=== PATIENT | female | born 1995 | race Caucasian/White ===

== ENCOUNTER 2017-06-05 17:21 | Emergency (ER) | payer MEDICAID, OTHER ==
[2017-06-05] MEDS ORDERED: Albuterol-Ipratrop 3 mg / 0.5 (3 ml) UD IH STA (18:12)
[2017-06-05 18:15] VITALS: TEMP 99; O2SAT 100
--- NOTE | 2017-06-05 18:19 | ED PDOC ---
Arrival/HPI - General Historian: Patient - History of Present Illness Time/Duration: Other (2 days) Context: Home - General Time Seen by Provider: 06/05/17 17:45 - History of Present Illness Narrative History of Present Illness (Text): 06/05/17 18:13 This 21 yo male presents to this ED c/o cough, and upper back pain x 2 days. Patient denies fever, cp, sob, recent travel, leg edema, calf pain, blood disorder, rash, palpitation, sick contact, hemoptysis, or abnormal gait. PERC negative for PE (Mancsuo,Nahim P) Past Medical History - Provider Review Nursing Documentation Reviewed: Yes - Psychiatric Hx Substance Use: No - Anesthesia Hx Anesthesia: No Family/Social History - Physician Review Nursing Documentation Reviewed: Yes Family/Social History: No Known Family HX Smoking Status: Never Smoked Hx Alcohol Use: No Hx Substance Use: No Allergies/Home Meds Allergies/Adverse Reactions: Allergies No Known Allergies Allergy (Verified 12/21/15 14:20) Review of Systems - Review of Systems Constitutional: Normal. absent: Fatigue, Weight Change, Fevers Eyes: Normal ENT: Normal Respiratory: Cough, Sputum. absent: Wheezing Cardiovascular: Normal. absent: Palpitations, Edema Gastrointestinal: Normal. absent: Abdominal Pain, Vomiting Genitourinary Female: Normal. absent: Dysuria, Frequency, Hematuria, Urine Output Changes, Vaginal Bleeding, Vaginal Discharge Musculoskeletal: Other ((+) upper back pain) Skin: Normal Neurological: Normal Endocrine: Normal Hemo/Lymphatic: Normal Psychiatric: Normal Physical Exam Temperature: Afebrile Blood Pressure: Normal Pulse: Regular Respiratory Rate: Normal Appearance: Positive for: Well-Appearing, Non-Toxic, Comfortable Pain Distress: None Mental Status: Positive for: Alert and Oriented X 3 - Systems Exam Head: Present: Atraumatic, Normocephalic Pupils: Present: PERRL Extroacular Muscles: Present: EOMI Conjunctiva: Present: Normal Mouth: Present: Moist Mucous Membranes Neck: Present: Normal Range of Motion Respiratory/Chest: Present: Clear to Auscultation, Good Air Exchange. No: Respiratory Distress, Accessory Muscle Use Cardiovascular: Present: Regular Rate and Rhythm, Normal S1, S2. No: Murmurs Abdomen: Present: Normal Bowel Sounds. No: Tenderness, Distention, Peritoneal Signs, Guarding Back: Present: Normal Inspection. No: CVA Tenderness Upper Extremity: Present: Normal Inspection, Normal ROM, NORMAL PULSES, Neurovascularly Intact, Capillary Refill < 2s. No: Cyanosis, Edema Lower Extremity: Present: Normal Inspection, NORMAL PULSES, Normal ROM, Neurovascularly Intact, Capillary Refill < 2 s. No: Edema Neurological: Present: GCS=15, CN II-XII Intact, Speech Normal, Motor Func Grossly Intact, Normal Sensory Function, Normal Cerebellar Funct, Gait Normal, Memory Normal Skin: Present: Warm, Dry, Normal Color. No: Rashes Psychiatric: Present: Alert, Oriented x 3, Normal Insight, Normal Concentration Medical Decision Making Re-evaluation Time: 18:49 Reassessment Condition: Re-examined, Improved ED Course and Treatment: 06/05/17 18:48 Re-evaluation. Patient feels better. Discussed results and plan with patient who expresses understanding. Counseling was provided regarding the diagnosis and prognosis. All questions answered and there is agreement with the plan to discharge home with instructions. Patient stable for discharge. Return if symptoms persist or worsen. Chest x-rays was unremarkable. Patient felt better after Duoneb, and Prednisone. Urine preg was negative. Patient was recommended to f/u PMD in 1-2 days, and to return to emergency if symptoms worsen. (Nazia Mancuso) 06/05/17 18:59 I was available for consultation during PA evaluation. The chart was reviewed by me, and I agree with disposition. The documented history was done by the physician business records manager. The documented physical exam was done by the physician business records manager. The documented procedures were done by the physician business records manager. (Alfredo Jennings) - RAD Interpretation Narrative RAD Interpretations (Text): 06/05/17 18:50 Chest x-rays: NAD (Nazia Mancuso) Radiology Orders: 06/05/17 18:11 CHEST TWO VIEWS (PA/LAT) [RAD] Stat - Medication Orders Current Medication Orders: Discontinued Medications Albuterol/Ipratropium (Duoneb 3 Mg/0.5 Mg (3 Ml) Ud) 3 ml IH STAT STA Stop: 06/05/17 18:13 Prednisone (Prednisone Tab) 60 mg PO STAT ONE Stop: 06/05/17 18:44 Disposition/Present on Arrival - Present on Arrival Any Indicators Present on Arrival: No History of DVT/PE: No History of Uncontrolled Diabetes: No Urinary Catheter: No History of Decub. Ulcer: No - Disposition Have Diagnosis and Disposition been Completed?: Yes Disposition Time: 18:50 Patient Plan: Discharge - Disposition Diagnosis: Upper respiratory infection, Upper back pain, Cough Disposition: HOME/ ROUTINE Patient Problems: Current Active Problems Problem Status Onset Upper respiratory infection Acute Upper back pain Acute Cough Acute Discharge Instructions (ExitCare): Upper Respiratory Infection (ED) Additional Instructions: Call private doctor for follow up visit in 1-2 days. Take medication as instructed. Return to emergency if symptoms worsen. Prescriptions: Acetaminophen with Codeine [Tylenol with Codeine #3 Tablet] 1 each PO Q6H PRN # 12 tablet PRN Reason: Pain, Severe (8-10) Prednisone [Deltasone] 40 mg PO DAILY #8 tablet Promethazine [Promethazine HCl] 5 ml PO Q4H PRN #180 ml PRN Reason: Cough Referrals: PCP,NO [Primary Care Provider] - Follow up with primary [facility] [Outside] - Follow up with primary [facility] [Outside] - Follow up with primary Forms: WORK NOTE
[2017-06-05 19:26] VITALS: BP 113/48; PULSE 82; RESP 16
--- NOTE | 2017-06-06 10:17 | RAD ---
HISTORY: COUGH COMPARISON: No prior. TECHNIQUE: Chest PA and lateral FINDINGS: LUNGS: No active pulmonary disease. PLEURA: No significant pleural effusion identified. No pneumothorax apparent. CARDIOVASCULAR: Normal. OSSEOUS STRUCTURES: No significant abnormalities. VISUALIZED UPPER ABDOMEN: Normal. OTHER FINDINGS: None. IMPRESSION: No active disease.
== END 2017-06-05 19:12 | disposition home or self-care (01) ==
LOC: EDBD → ED 17:21
DX: J06.9 Acute upper respiratory infection, unspecified (principal); M54.6 Pain in thoracic spine; R05 Cough

== ENCOUNTER 2018-03-30 18:03 | Emergency (ER) | payer MEDICAID, OTHER ==
[2018-03-30] MEDS ORDERED: Sodium Chloride 0.9% 1,000 ML IV STA (18:33)
--- NOTE | 2018-03-30 18:36 | ED PDOC ---
Arrival/HPI - General Chief Complaint: GI Problem Time Seen by Provider: 03/30/18 18:17 Historian: Patient - History of Present Illness Narrative History of Present Illness (Text): 03/30/18 18:33 22yr old female presents today with a 2 day history of worsening rectal pain. pt states symptoms started 2 days ago after bowel movement. pt states she strained slightly and then noticed a small amount of bleeding when she wiped. pt states since that time the pain has worsened. pt states the pain is constant. pt states she tried oTc preparation H and has been taking motrin for pain without improvement. pt states the pain is severe 7/10 and localized to the rectum.pt denies fever/chills. no abdominal pain. no dizziness or weakness. no trauma or injury. pt states she has been trying suppositories without improvement. no other complaints. Time/Duration: Other (2-3 days) Past Medical History - Provider Review Nursing Documentation Reviewed: Yes - Travel History Have you recently traveled outside [place] w/in the past 3 mons?: No - Infectious Disease Hx of Infectious Diseases: None - Psychiatric Hx Psychophysiologic Disorder: No Hx Substance Use: No - Anesthesia Hx Anesthesia: No - Suicidal Assessment Feels Threatened In Home Enviroment: No Family/Social History - Physician Review Nursing Documentation Reviewed: Yes Family/Social History: Unknown Family HX Smoking Status: Never Smoked Hx Alcohol Use: No Hx Substance Use: No Allergies/Home Meds Allergies/Adverse Reactions: Allergies No Known Allergies Allergy (Verified 03/30/18 18:06) Review of Systems - Review of Systems Constitutional: absent: Fatigue, Fevers Respiratory: absent: SOB, Cough Cardiovascular: absent: Chest Pain, Palpitations Gastrointestinal: Other (rectal pain). absent: Abdominal Pain, Nausea, Vomiting Genitourinary Female: absent: Dysuria, Frequency, Hematuria Musculoskeletal: absent: Arthralgias, Back Pain, Neck Pain Skin: absent: Rash, Pruritis Neurological: absent: Headache, Dizziness Psychiatric: absent: Anxiety, Depression Physical Exam Vital Signs Reviewed: Yes Vital Signs Temp Pulse Resp BP Pulse Ox 03/30/18 21:05 98.1 F 60 18 115/57 L 100 03/30/18 19:48 98.7 F 60 18 111/78 100 03/30/18 18:07 98.7 F 86 16 113/75 98 Temperature: Afebrile Blood Pressure: Normal Pulse: Regular Respiratory Rate: Normal Appearance: Positive for: Well-Appearing, Non-Toxic, Comfortable Pain Distress: Mild Mental Status: Positive for: Alert and Oriented X 3 - Systems Exam Head: Present: Atraumatic Mouth: Present: Moist Mucous Membranes Neck: Present: Normal Range of Motion Respiratory/Chest: Present: Clear to Auscultation, Good Air Exchange. No: Respiratory Distress, Accessory Muscle Use Cardiovascular: Present: Regular Rate and Rhythm, Normal S1, S2. No: Murmurs Abdomen: No: Tenderness, Distention, Peritoneal Signs, Rebound, Guarding Rectal: Present: Normal Rectal Tone, Other (chaparoned by chris michelle EMT). No: Occult Blood, Gross Blood, Melena, Hemorrhoids, Nodule/Mass/Lesions Back: Present: Normal Inspection Upper Extremity: Present: Normal ROM Lower Extremity: Present: Normal ROM Neurological: Present: GCS=15, Speech Normal Medical Decision Making ED Course and Treatment: 03/30/18 18:37 22yr old female with worsening rectal pain. vitals stable. pt c/o severe rectal pain. on rectal examination; no visualized hemorrhoids. no bleeding. diffuse rectal tenderness. cbc: wnl cmp: wnl lipase; wnl UA; ct abd/pelvis r/o bhavin-rectal abscess: Addendum created by Vazquez Cleveland MD on 03/30/2018 9:29 PM Eastern Time ([place] & [place]) Correction:"There is a peripherally enhancing probable right renal cyst measuring 1.9 x 1.7 x 2.2 cm.", should say, "There is a peripherally enhancing probable right ovarian cyst measuring 1.9 x 1.7 x 2.2 cm." Addendum created by Vazquez Cleveland MD on 03/30/2018 9:17 PM Eastern Time ([place] & [place]) Findings are discussed with VENICE WINSTON , 03/30/2018 9:17 PM EDT. The findings were acknowledged and understood. Initial Report created on 03/30/2018 9:05 PM Eastern Time ([place] & [place]) EXAM: CT Abdomen and Pelvis With Intravenous Contrast EXAM DATE/TIME: 03/30/2018 6:33 PM CLINICAL HISTORY: The patient age is 22 years old and is female; Pain; Other: See below; Additional info: Rectal pain Facility exam id and description: [id number] abd pelvis iv contrast only TECHNIQUE: Axial computed tomography images of the abdomen and pelvis with intravenous contrast. All CT scans at this facility use one or more dose reduction techniques, viz.: automated exposure control; ma/kV adjustment per patient size (including targeted exams where dose is matched to indication; i.e. head); or iterative reconstruction technique. Coronal and sagittal reformatted images were created and reviewed. CONTRAST: 100 mL of omnipaque administered intravenously. COMPARISON: No relevant prior studies available. FINDINGS: Lung bases: No mass. No consolidation. ABDOMEN: Liver: No mass. Gallbladder and bile ducts: No calcified stones. No ductal dilation. Pancreas: Normal contour, without acute peripancreatic stranding. Spleen: No splenomegaly. Adrenals: No mass. Kidneys and ureters: No mass or hydronephrosis bilaterally. Stomach and bowel: No obstruction. No mucosal thickening. Evaluation of bowel is limited by the absence of oral contrast. PELVIS: Appendix: No findings to suggest acute appendicitis. Bladder: No bladder stone. The bladder is incompletely filled. Reproductive: There is a peripherally enhancing probable right ovarian cyst measuring 1.9 x 1.7 x 2.2 cm. ABDOMEN and PELVIS: Intraperitoneal space: There is a small amount of free fluid within the pelvis. No free air. Bones/joints: No acute fracture. Soft tissues: There is mild herniation of fat into the umbilicus. Vasculature: No abdominal aortic aneurysm. Lymph nodes: There is a mildly enlarged right external iliac lymph node measuring 1.3 x 0.8 cm, nonspecific as to etiology. Nonspecific inguinal lymph nodes are visualized bilaterally. IMPRESSION: 1. There is a small amount of free fluid within the pelvis. 2. There is a peripherally enhancing probable right renal cyst measuring 1.9 x 1.7 x 2.2 cm. This can be further evaluated with ultrasound. 3. There is a mildly enlarged right external iliac lymph node measuring 1.3 x 0.8 cm, nonspecific as to etiology. 4. Incidental/non-acute findings are described above i spoke with dr. cleveland and discussed ct results; he states there is no bhavin rectal abscess, but there is free pelvic fluid. pt reassessment; pt feeling better with medication; i discussed results in depth with patient; i advised f/u with GI specialist within the next 2 days. i advised immediate return if symptoms worsen, persist or if new symptoms develop. Patient verbalizes understanding of discharge instructions and need for immediate followup. all aspects of this case were discussed the attending of record. impression: rectal pain motrin every 6 hours as needed for pain follow up with the GI specialist within the next 2 days Increase fluids Colace; 1 tablet twice daily (stool softener) Follow up with the primary care physician within the next 2 days. return immediately if symptoms worsen,persist or if new symptoms develop: High fevers, increasing pain, rectal bleeding or if any other concerning symptoms develop. Reassessment Condition: Re-examined, Improved - Lab Interpretations Lab Results: 03/30/18 18:58 03/30/18 18:58 Lab Results 03/30/18 18:58: Urine Color Yellow, Urine Appearance Sl cloudy, Urine pH 6.0, Ur Specific [place] 1.020, Urine Protein Trace H, Urine Glucose (UA) Negative, Urine Ketones >=80, Urine Blood Negative, Urine Nitrate Negative, Urine Bilirubin Negative, Urine Urobilinogen 0.2, Ur Leukocyte Esterase Negative, Urine RBC Negative, Urine WBC Negative, Ur Epithelial Cells 4 - 5, Urine Bacteria Small 03/30/18 18:58: WBC 5.9, RBC 4.31, Hgb 13.0, Hct 38.3, MCV 88.9, MCH 30.2, MCHC 33.9, RDW 13.8, Plt Count 233, MPV 10.1, Gran % 65.2, Lymph % (Auto) 22.8, [place] % (Auto) 10.8 H, Eos % (Auto) 0.7 L, Baso % (Auto) 0.5, Gran # 3.86, Lymph # ( Auto) 1.4, [place] # (Auto) 0.6, Eos # (Auto) 0.0, Baso # (Auto) 0.03 03/30/18 18:58: Sodium 142, Potassium 4.0, Chloride 105, Carbon Dioxide 24, Anion Gap 17, BUN 6 L, Creatinine 0.6 L, Est GFR ( Amer) > 60, Est GFR ( Non-Af Amer) > 60, Random Glucose 103, Calcium 9.3, Total Bilirubin 0.3, AST 28 , ALT 23, Alkaline Phosphatase 44, Total Protein 7.9, Albumin 4.6, Globulin 3.3 , Albumin/Globulin Ratio 1.4, Lipase 39 - RAD Interpretation Radiology Orders: 06/04/18 18:33 ABD & PELVIS IV CONTRAST ONLY [CT] Stat - Medication Orders Current Medication Orders: Discontinued Medications Sodium Chloride (Sodium Chloride 0.9%) 1,000 mls @ 999 mls/hr IV .Q1H1M STA Stop: 03/30/18 19:33 Last Admin: 03/30/18 19:00 Dose: 999 mls/hr eMAR Start Stop Document 03/30/18 19:00 MS (Rec: 03/30/18 19:[address] [facility] [id number]) Intravenous Solution Start Date 03/30/18 Start Time 19:01 End Date 03/30/18 End time 20:01 Total Infusion Time 60 Ketorolac Tromethamine (Toradol) 30 mg IVP STAT STA Stop: 03/30/18 19:51 Last Admin: 03/30/18 19:58 Dose: 30 mg MAR Pain Assessment Document 03/30/18 19:58 LA (Rec: 03/30/18 19:58 LA [id number]) Pain Reassessment Is this a pain reassessment? No Sleep Is patient sleeping during reassessment? No Presence of Pain Presence of Pain Yes Pain Scale Used Pain Scale Used Numeric Description Description Constant Intensity of Pain at present 6 Pain Behavior Guarding IVP Administration Document 03/30/18 19:58 LA (Rec: 03/30/18 19:58 LA [id number]) Charges for Administration # of IVP Administrations 1 Disposition/Present on Arrival - Present on Arrival Any Indicators Present on Arrival: No History of DVT/PE: No History of Uncontrolled Diabetes: No Urinary Catheter: No History of Decub. Ulcer: No History Surgical Site Infection Following: None - Disposition Have Diagnosis and Disposition been Completed?: Yes Diagnosis: Rectal pain, Ovarian cyst Disposition: HOME/ ROUTINE Disposition Time: 21:40 Patient Plan: Discharge Patient Problems: Current Active Problems Problem Status Onset Rectal pain Acute Condition: GOOD Additional Instructions: motrin every 6 hours as needed for pain follow up with the GI specialist within the next 2 days Increase fluids Colace; 1 tablet twice daily (stool softener) Follow up with the primary care physician within the next 2 days. return immediately if symptoms worsen,persist or if new symptoms develop: High fevers, increasing pain, rectal bleeding or if any other concerning symptoms develop. Prescriptions: Docusate [Colace] 100 mg PO BID #30 cap Ibuprofen [Motrin] 600 mg PO Q6H PRN #20 tab PRN Reason: pain/fever reduction Referrals: Ricardo Mast MD [Staff Provider] - Follow up with primary [facility] [place] [Outside] - Follow up with primary Eligio Barrientos MD [Staff Provider] - Follow up with primary Forms: [employer] ([place]er), WORK NOTE
[2018-03-30 19:16] LABS: BASO # 0.03 K/mm3 (0.0-2.0); BASO % 0.5 % (0.0-3.0); EOS % 0.7 % (1.5-5.0); GRAN # 3.86 (1.4-6.5); GRAN % 65.2 % (50.0-68.0); LYMPH # 1.4 (1.2-3.4); LYMPH % 22.8 % (22.0-35.0); MEAN CELL VOLUME 88.9 fl (80.0-105.0); MEAN CORPUSCULAR HEMOGLOBIN 30.2 pg (25.0-35.0); MEAN CORPUSCULAR HGB CONC 33.9 g/dl (31.0-37.0); MEAN PLATELET VOLUME 10.1 fl (7.0-11.0); MONO # 0.6 (0.1-0.6); MONO % 10.8 % (1.0-6.0); RBC 4.31 10^6/uL (3.5-6.1); RED CELL DISTRIBUTION WIDTH 13.8 % (11.5-14.5); WHITE BLOOD COUNT 5.9 10^3/ul (4.5-11.0)
[2018-03-30 19:17] LABS: URINE BILIRUBIN NEGATIVE (NEGATIVE); URINE BLOOD NEGATIVE (NEGATIVE); URINE GLUCOSE (UA) NEGATIVE (NEGATIVE); URINE LEUKOCYTE ESTERASE NEGATIVE Leu/uL (NEGATIVE); URINE PROTEIN TRACE mg/dL (<30 mg/dL); URINE UROBILINOGEN 0.2 E.U./dL (<1 E.U./dL)
[2018-03-30 19:18] LABS: URINE APPEARANCE SL CLOUDY (CLEAR); URINE COLOR YELLOW (YELLOW)
[2018-03-30 19:21] LABS: ALB/GLOB RATIO 1.4 (1.1-1.8); ALBUMIN 4.6 g/dL (3.0-4.8); ALT/SGPT 23 U/L (7-56); AST/SGOT 28 U/L (14-36); BLOOD UREA NITROGEN 6 mg/dL (7-21); CALCIUM 9.3 mg/dL (8.4-10.5); GFR AFRICAN-AMERICAN > 60; GFR NON-AFRICAN AMERICAN > 60; LIPASE 39 U/L (23-300)
[2018-03-30] MEDS ORDERED: Iohexol 300 100 ML IJ ONE (19:21)
[2018-03-30 19:26] LABS: URINE BACTERIA SMALL (NEG); URINE RBC NEGATIVE /hpf (0-2); URINE WBC NEGATIVE /hpf (0-6)
[2018-03-30 19:49] VITALS: RESP 18; O2SAT 100
--- NOTE | 2018-03-30 21:06 | CT ---
EXAM: CT Abdomen and Pelvis With Intravenous Contrast EXAM DATE/TIME: 03/30/2018 6:33 PM CLINICAL HISTORY: The patient age is 22 years old and is female; Pain; Other: See below; Additional info: Rectal pain Facility exam id and description: Ct abdpelciv abd pelvis iv contrast only TECHNIQUE: Axial computed tomography images of the abdomen and pelvis with intravenous contrast. All CT scans at this facility use one or more dose reduction techniques, viz.: automated exposure control; ma/kV adjustment per patient size (including targeted exams where dose is matched to indication; i.e. head); or iterative reconstruction technique. Coronal and sagittal reformatted images were created and reviewed. CONTRAST: 100 mL of omnipaque administered intravenously. COMPARISON: No relevant prior studies available. FINDINGS: Lung bases: No mass. No consolidation. ABDOMEN: Liver: No mass. Gallbladder and bile ducts: No calcified stones. No ductal dilation. Pancreas: Normal contour, without acute peripancreatic stranding. Spleen: No splenomegaly. Adrenals: No mass. Kidneys and ureters: No mass or hydronephrosis bilaterally. Stomach and bowel: No obstruction. No mucosal thickening. Evaluation of bowel is limited by the absence of oral contrast. PELVIS: Appendix: No findings to suggest acute appendicitis. Bladder: No bladder stone. The bladder is incompletely filled. Reproductive: There is a peripherally enhancing probable right ovarian cyst measuring 1.9 x 1.7 x 2.2 cm. ABDOMEN and PELVIS: Intraperitoneal space: There is a small amount of free fluid within the pelvis. No free air. Bones/joints: No acute fracture. Soft tissues: There is mild herniation of fat into the umbilicus. Vasculature: No abdominal aortic aneurysm. Lymph nodes: There is a mildly enlarged right external iliac lymph node measuring 1.3 x 0.8 cm, nonspecific as to etiology. Nonspecific inguinal lymph nodes are visualized bilaterally. IMPRESSION: 1. There is a small amount of free fluid within the pelvis. 2. There is a peripherally enhancing probable right renal cyst measuring 1.9 x 1.7 x 2.2 cm. This can be further evaluated with ultrasound. 3. There is a mildly enlarged right external iliac lymph node measuring 1.3 x 0.8 cm, nonspecific as to etiology. 4. Incidental/non-acute findings are described above.
[2018-03-30 22:01] VITALS: BP 113/69; PULSE 61; TEMP 98
== END 2018-03-30 21:59 | disposition home or self-care (01) ==
LOC: ED 18:03
DX: K62.89 Other specified diseases of anus and rectum (principal); N83.201 Unspecified ovarian cyst, right side
CPT/HCPCS: 74177; 80053; 81001; 83690; 85025; 96361; 96374; 99284; J1885; J7030; Q9967